=== PATIENT | female | born 1980 | race Two or more races ===

== ENCOUNTER 2024-08-12 07:25 | Day surgery (SDC) | payer MEDICAID, SELFPAY ==
--- NOTE | 2024-08-09 07:00 | EKG_ITS ---
[facility] Test Date: 2024-08-09 Pat Name: RUSTY KRUSE Department: Room: - Gender: Female Tight Rope Walker: VIVIANE : 1980 Requested By: Geoff Julien Order Number: [id number] Reading MD: Geoff Julien Measurements Intervals [place] Rate: 84 P: 64 [place]: 163 QRS: -5 QRSD: 78 T: 8 QT: 387 QTc: 458 Interpretive Statements SINUS RHYTHM POSSIBLE ANTERIOR MYOCARDIAL INFARCTION , PROBABLY OLD [30 ms Q WAVE IN V3/V4, OR R < 0.2 mV IN V4] No previous ECG available for comparison /[id number]
[2024-08-09 07:37] VITALS: BMI 47.2
[2024-08-09 08:43] LABS: Collection Type, Urine Clean Catch
[2024-08-09 08:51] LABS: Basophils % (Auto) 0 % (0-2.5); Eosinophils # (Auto) 0.1 Thou/mm3 (0.0-0.5); Eosinophils % (Auto) 2 % (0-10); Hematocrit 31.1 % (36.0-46.0); Hemoglobin 10.3 g/dL (12.0-16.0); Immature Granulocytes % (Auto) 0 % (0-0); Immature Granulocytes Auto 0.01 Thou/mm3 (0.00-0.00); Lymphocytes # (Auto) 1.9 Thou/mm3 (1.0-4.8); Lymphocytes % (Auto) 37 % (10-50); Mean Corpuscular HGB Conc 33.1 g/dl (31.0-37.0); Mean Corpuscular Hemoglobin 28.5 pg (25.0-35.0); Mean Corpuscular Volume 86 fL (80-100); Monocytes # (Auto) 0.5 Thou/mm3 (0.0-0.8); Monocytes % (Auto) 11 % (0-12); Neutrophils # (Auto) 2.5 Thou/mm3 (1.8-7.7); Neutrophils % (Auto) 50 % (37-80); Nucleated Red Blood Cell % 0 /100 WBC (0); Platelet Count 264 Thou/mm3 (140-440); RDW Standard Deviation 49.2 fL (36.4-46.3); Red Blood Count 3.62 Miln/mm3 (4.00-5.20)
[2024-08-09 08:58] LABS: Bacteria,Urine Rare; Bilirubin,Urine Negative (Negative); Blood,Urine Negative (Negative); Clarity,Urine Clear (Clear/Hazy); Color,Urine Lt-Yellow (Lt Yel-Yel); Glucose, Urine Negative (Negative); Ketones,Urine Negative (Negative); Leukocyte Esterase,Urine Negative (Negative); Nitrite,Urine Negative (Negative); Protein,Urine Negative (Neg - Trace); RBC,Urine 2 /hpf (0-3); Specific Gravity,Urine 1.018 (1.001-1.035); Squamous Epithelial Cell,Urine 3 /hpf (0-5); Urobilinogen,Urine Negative mg/dL (0.0-1.0); WBC,Urine 2 /hpf (0-5)
[2024-08-09 09:20] LABS: Alanine Aminotransferase 24 U/L (10-49); Albumin, Serum 4.2 gm/dL (3.5-5.0); Albumin/Globulin Ratio 1.3 (1.2-2.2); Alkaline Phosphatase 104 U/L (46-116); Anion Gap 8 (7-16); Aspartate Amino Transferase 24 U/L (0-34); BUN/Creatinine Ratio 18 Ratio (12-20); Bilirubin,Total 0.5 mg/dL (0.3-1.2); Blood Urea Nitrogen 11 mg/dL (9-23); Calcium 9.2 mg/dL (8.3-10.6); Calcium (Corrected) 9.2 mg/dL (8.5-10.1); Carbon Dioxide 27.2 mMol/L (20.0-31.0); Chloride 105 mMol/L (98-107); Creatinine (Component) 0.6 mg/dL (0.6-1.3); Globulin 3.2 gm/dL (2.3-3.5); Glucose 105 mg/dL (74-106); Osmolality,Calculated 278 (275-295); Partial Thromboplastin Time 24.8 Seconds (22.0-36.0); Potassium 3.7 mMol/L (3.4-5.1); Prothrombin Time 10.9 Seconds (9.0-12.2); Sodium 140 mMol/L (136-145); Total Protein 7.4 gm/dL (5.7-8.2); eGFR > 60 See Note
[2024-08-09 10:38] LABS: Beta HCG,Quantitative 2 mIU/mL (<5.0)
[2024-08-12] VITALS (11 sets, daily range): BP systolic 123–178; BP diastolic 75–97; PULSE 98–108; RESP 12–22; TEMP 36.6–37.2; O2SAT 94–100; BMI 46.2
--- NOTE | 2024-08-12 08:12 | SUR.PREOP ---
Patient expressed gratitude for prayer before their procedure
--- NOTE | 2024-08-12 11:21 | SUR.PHASEI ---
1121 Patient arrived to recovery resting comfortably in [facility], on oxygen 6L via oxy mask, breathing unlabored, vital signs stable, denies pain, dressing intact to buttock; gauze, medpore tape, no bleeding noted, denies nasuea, report received from Fernanda NEGRO and Dr. Cowan
--- NOTE | 2024-08-12 11:29 | PD.SUROPNT ---
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 Procedure Examination under anesthesia and anoplasty with advancement flaps. 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 She also had an anal canal polyp which was bleeding so was removed. There is significant amount of scar tissue. That the sphincter was identified and protected. Procedure Description The patient was examined in the preoperative area and the procedure was discussed in detail with the patient. Risk benefits and alternatives were discussed with the patient and informed consent is obtained. Patient already had a bowel prep. The patient is then taken to the operating room and general anesthesia is administered in a satisfactory manner. Patient is positioned in the high lithotomy position in yellowfin's. Perianal region is prepped and draped in usual manner. IV antibiotics are given. Examination under anesthesia is carried out. The opening anal canal opening is about 0.5 to 1 cm in diameter and barely admitted my little finger. I used dilute lidocaine solution for perirectal block that did not open up the anal canal because is not because of the muscle spasm and it is because of scar tissue. I found anal canal polyp in the location upon examination it started having some bleeding so I removed the anal canal polyp with cautery and sent off as specimen. Then at first I made an incision in the stricture of the skin at 3 o'clock position. I identified the sphincter and protected it. I extended the incision from anoderm to the perianal skin. That divided the stricture at that location and widen the area. Then I undermined to about 2 to 3 cm around. That allowed advancement flap on all sides. The incision to the skin was about 3 cm long. I was able to bring that a V shaped incision site to to the anoderm to the widen the area of the stricture. I sutured it with 3-0 Vicryl interrupted sutures so that the advancement flap is bringing more dermis and skin to the strictured area widening the opening. When I did the same procedure at 9 o'clock position and 6 o'clock position. A significant amount of scar tissue at all these 3 places was found. The finding allowed me to divide the scar. At the end of anoplasty procedure I was able to insert 2 of my fingers and the opening is about 3 to 3-1/2 cm. I injected the local anesthetic solution again and then applied lidocaine and Silvadene cream inside the anal canal. Then I placed a cigarette drain in the anal canal. The procedure was terminated with sterile dressing. Patient tolerated the procedure very well. Anesthesia GETA Drains None. Implants None. Pathology / specimen Other (Anal canal polyp.) Estimated Blood Loss 5 Condition Stable Disposition PACU Surgeon Geoff Julien MD Surgical Staff Operation Date: 08/12/24 09:30 Case Staff Anesthesiologist: Adam Cowan RN geothermal operating engineer traveler [employer] surgical assistant with the surgical assistant student
--- NOTE | 2024-08-12 12:19 | SUR.PHASEII ---
1219 Report given to Christie Bowles RN
--- NOTE | 2024-08-12 12:19 | SUR.PHASEII ---
pt awake, alert, able to follow commands, breathing unlabored, dressing to buttock clean, dry, and intact, report from Christie Marshall RN
--- NOTE | 2024-08-12 12:30 | SUR.PHASEII ---
Pt working with incentive spirometer, o2 saturation drops below 92% when pt resting and not using incentive spirometer
--- NOTE | 2024-08-12 13:07 | SUR.PHASEII ---
pt awake, alert, able to follow commands, breathing unalbored, dressing to buttock clean, dry, and intact, discharge instructions given using telephone interpreter deaf Rafael ID#[id number] with spouse present, pt able to dress self and ambulate with steady gait to wheelchair. Report given to Christie Marshall RN
--- NOTE | 2024-08-12 13:07 | SUR.PHASEII ---
1303 Report received from Christie Bowles RN
--- NOTE | 2024-08-12 13:21 | SUR.PHASEII ---
1321 Patient meets discharge criteria from recovery, awake and alert, breathing unlabored, vital signs stable, denies pain, dressing intact; no bleeding noted, denies nausea, drinking fluids; denies nausea, voided prior to discharge, patient assisted with dressing into her clothing by her , discharge instructions given to patient and patients with the assistance of the telephone route sales representative Jodie ID#[id number], patient signed discharge instructions. Patient given all her belongings prior to discharge, transported via wheelchair and left in a private vehicle.
== END 2024-08-12 13:21 | disposition home or self-care (01) ==
PROVIDERS: PCP Family Medicine; Referring Provider Specialist; Visit Provider Specialist
PROC: (CPT 46706; principal; 2024-08-12 09:15)
DX: K62.4 Stenosis of anus and rectum (principal); Z87.19 Personal history of other diseases of the digestive system; Z01.810 Encounter for preprocedural cardiovascular examination; K51.418 Inflammatory polyps of colon with other complication; K62.89 Other specified diseases of anus and rectum
CPT/HCPCS: 46706; 36415; 80053; 81001; 84702; 85025; 85610; 85730; 93005; A4217; A4649; J0131; J0690; J0694; J1100; J1885; J2250; J2405; J2704; J2795; J3010; J3490; J7040; A9270